=== PATIENT | male | born 2000 | race Caucasian/White ===

== ENCOUNTER 2023-05-22 19:09 | Emergency (ER) | payer SELFPAY ==
[~2023-05-22] VITALS: Ht 180.3 cm; Wt 92.5 kg
[2023-05-22 19:26] VITALS: BP_SYST 128; PULSE 72; RESP 17; TEMP 97.6; O2SAT 98
[2023-05-22] MEDS ORDERED: IBUP-1971 PO (20:07)
== END 2023-05-22 20:15 | disposition home or self-care (01) ==
LOC: SED 19:09
DX: S93.402A Sprain of unspecified ligament of left ankle, initial encounter (principal); Z79.899 Other long term (current) drug therapy; W21.06XA Struck by volleyball, initial encounter; Y93.89 Activity, other specified; Y92.89 Other specified places as the place of occurrence of the external cause; Y99.8 Other external cause status
CPT/HCPCS: 99283